=== PATIENT | female | born 1990 | race Caucasian/White ===

== ENCOUNTER 2017-04-10 09:24 | Inpatient (IN) | payer OTHER ==
[~2017-04-10] VITALS: Ht 170.2 cm; Wt 109.0 kg
[2017-04-10] VITALS (18 sets, daily range): BP systolic 98–134; BP diastolic 50–79
[~2017-04-10 09:24] MED LIST: PRENATAL TABLE1 EAC3 PO; TYLENOL EXTRA500 MG PO
[2017-04-10 11:05] LABS: EOSINOPHIL (%) 0.6 % (0-5); EOSINOPHIL COUNT 0.1 K/uL (0-0.3); HEMATOCRIT 36.6 % (36.0-46.0); IMMATURE GRANULOCYTE (%) 1.2 % (0.0-0.7); IMMATURE GRANULOCYTE COUNT 0.2 K/uL; INSTRUMENT ABS NEUTROPHIL CT 7.8 K/uL; LYMPHOCYTE COUNT 3.4 K/uL (1.0-2.8); MCH 31.3 PG (29.0-34.0); MCV 89.5 FL (83-99); MEAN PLAT.VOLUME 11.5 uM^3 (9.5-12.4); NEUTROPHIL COUNT 7.8 K/uL (1.8-6.4); PLATELET COUNT 277 K/uL (156-360); RBC DIS.WIDTH-CV 15.3 % (11.8-14.6); RBC DIS.WIDTH-SD 50.3 % (39-53); RED BLOOD COUNT 4.09 M/uL (3.80-5.20); WHITE BLOOD COUNT 12.4 K/uL (4.1-10.2)
[2017-04-11 08:01] VITALS: BP 125/66
[2017-04-11 08:18] LABS: EOSINOPHIL (%) 0.5 % (0-5); EOSINOPHIL COUNT 0.1 K/uL (0-0.3); HEMATOCRIT 36.5 % (36.0-46.0); IMMATURE GRANULOCYTE (%) 0.7 % (0.0-0.7); IMMATURE GRANULOCYTE COUNT 0.1 K/uL; INSTRUMENT ABS NEUTROPHIL CT 9.8 K/uL; LYMPHOCYTE COUNT 3.6 K/uL (1.0-2.8); MCH 29.7 PG (29.0-34.0); MCHC 33.2 G/DL (30.0-36.0); MCV 89.5 FL (83-99); MEAN PLAT.VOLUME 11.3 uM^3 (9.5-12.4); MONOCYTE (%) 9.1 % (3-12); MONOCYTE COUNT 1.4 K/uL (0-0.8); NEUTROPHIL (%) 65.4 % (45-76); NEUTROPHIL COUNT 9.8 K/uL (1.8-6.4); PLATELET COUNT 274 K/uL (156-360); RBC DIS.WIDTH-CV 15.5 % (11.8-14.6); RBC DIS.WIDTH-SD 50.3 % (39-53); RED BLOOD COUNT 4.08 M/uL (3.80-5.20)
[2017-04-11 15:50] VITALS: BP 122/69
[2017-04-11 23:08] VITALS: BP 121/63
[2017-04-12 07:18] VITALS: BP 130/78
[2017-04-12] MEDS ORDERED: IBUPROFEN800 MG PO (08:52)
== END 2017-04-12 11:10 | disposition home or self-care (01) | DRG 775 ==
LOC: LDRP-OP 09:24 → 2WEST 09:25 → LDRP-OP 05-11 14:35
PROVIDERS: Advanced Practice Midwife
PROC: 3E0R3CZ (ICD-10-PCS; principal; 2017-04-10)
PROC: 10E0XZZ Delivery of Products of Conception, External Approach (ICD-10-PCS; principal; 2017-04-10)
PROC: 3E033VJ Introduction of Other Hormone into Peripheral Vein, Percutaneous Approach (ICD-10-PCS; principal; 2017-04-10)
PROC: 10907ZC Drainage of Amniotic Fluid, Therapeutic from Products of Conception, Via Natural or Artificial Opening (ICD-10-PCS; principal; 2017-04-10)
PROC: 00HU33Z Insertion of Infusion Device into Spinal Canal, Percutaneous Approach (ICD-10-PCS; principal; 2017-04-10)
DX: O41.03X0 Oligohydramnios, third trimester, not applicable or unspecified (principal); O36.63X0 Maternal care for excessive fetal growth, third trimester, not applicable or unspecified; Z3A.40 40 weeks gestation of pregnancy; Z37.0 Single live birth; O99.334 Smoking (tobacco) complicating childbirth; F17.200 Nicotine dependence, unspecified, uncomplicated; O99.214 Obesity complicating childbirth; E66.9 Obesity, unspecified; Z68.31 Body mass index [BMI] 31.0-31.9, adult
CPT/HCPCS: 85025; C1755; J3010; J7120